=== PATIENT | female | born 1970 | race Two or more races ===

== ENCOUNTER 2017-12-28 13:57 | Emergency (ER) | payer OTHER ==
[~2017-12-28] VITALS: Ht 165.1 cm; Wt 4.5 kg
[2017-12-28 14:10] VITALS: BP 140/95
[2017-12-28] MEDS ORDERED: LIDOCAINE 1%-EPI 1:100,000 20 ML VIAL ONE (14:20)
[2017-12-28] MEDS ORDERED: LIDOCAINE 1%-EPI 1:100,000 20 ML VIAL TP ONE (15:30)
[2017-12-28] MEDS ORDERED: TDAP [DIPH/PERTUSSIS/TET] 0.5 ML VIAL IM ONE ×2 (15:30→15:34)
== END 2017-12-28 15:58 | disposition home or self-care (01) ==
LOC: ER 13:58
DX: S81.812A Laceration without foreign body, left lower leg, initial encounter (principal); S81.012A Laceration without foreign body, left knee, initial encounter; W26.8XXA Contact with other sharp object(s), not elsewhere classified, initial encounter; Y93.89 Activity, other specified; Y92.89 Other specified places as the place of occurrence of the external cause; Y99.8 Other external cause status
CPT/HCPCS: 12004; 90471; 90715; 99283; A4606; A6402 ×2; A6403; J3490; Z7610

== ENCOUNTER 2017-12-30 22:20 | Emergency (ER) | payer OTHER ==
[~2017-12-30] VITALS: Ht 160 cm; Wt 77.1 kg
[2017-12-30 23:03] VITALS: BP 155/76
[2017-12-30] MEDS ORDERED: CEFTRIAXONE 500 MG VIAL IM ONE (23:30)
[2017-12-30] MEDS ORDERED: CEFTRIAXONE 1 G VIAL ONE (23:37)
[2017-12-30] MEDS ORDERED: LIDOCAINE 0.5% HCL 50 ML VIAL ONE (23:37)
== END 2017-12-31 00:12 | disposition home or self-care (01) ==
LOC: ER 22:20
DX: S71.112D Laceration without foreign body, left thigh, subsequent encounter (principal); X58.XXXD Exposure to other specified factors, subsequent encounter
CPT/HCPCS: A4606; J0696; J3490; Z7610

== ENCOUNTER 2017-12-31 21:06 | Emergency (ER) | payer OTHER, MEDICAID ==
[~2017-12-31] VITALS: Ht 162.6 cm; Wt 77.1 kg
[2017-12-31 21:10] VITALS: BP 129/76
== END 2017-12-31 21:38 | disposition home or self-care (01) ==
LOC: ER 21:09
DX: S71.112D Laceration without foreign body, left thigh, subsequent encounter (principal); X58.XXXD Exposure to other specified factors, subsequent encounter
CPT/HCPCS: A4606; Z7502; Z7610

== ENCOUNTER 2018-01-10 22:50 | Emergency (ER) | payer OTHER, MEDICAID ==
[~2018-01-10] VITALS: Ht 172.7 cm; Wt 77.1 kg
[2018-01-10 22:55] VITALS: BP 138/90
[2018-01-10] MEDS ORDERED: HYDROCODONE/APAP 5/325MG 1 EACH TABLET ONE (23:27)
[2018-01-10] MEDS ORDERED: HYDROCODONE/APAP 5/325MG 1 EACH TABLET PO ONE (23:30)
== END 2018-01-10 23:43 | disposition home or self-care (01) ==
LOC: ER 22:51
DX: S81.812D Laceration without foreign body, left lower leg, subsequent encounter (principal); X58.XXXD Exposure to other specified factors, subsequent encounter
CPT/HCPCS: 99281; A4606; Z7610; Z7502

== ENCOUNTER 2021-06-24 13:19 | Emergency (ER) | payer OTHER ==
[~2021-06-24] VITALS: Ht 157.5 cm; Wt 79.4 kg
[2021-06-24 13:58] VITALS: BP 151/87
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
[2021-06-24] MEDS ORDERED: IBUPROFEN 600 MG TABLET PO ONE (15:00)
[2021-06-24] MEDS ORDERED: ACETAMINOPHEN ES 500 MG TABLET PO ONE (15:00)
[2021-06-24] MEDS ORDERED: ACETAMINOPHEN ES 500 MG TABLET ONE (15:43)
[2021-06-24] MEDS ORDERED: IBUPROFEN 600 MG TABLET ONE (15:44)
[2021-06-24] MEDS ORDERED: IBUP-1957 PO (16:14)
--- NOTE | 2021-06-24 16:29 | NUR ---
Patient discharged to home in stable condition. Written and verbal after care instructions given. Patient verbalizes understanding of instruction.
== END 2021-06-24 16:30 | disposition home or self-care (01) ==
LOC: ER 13:29
DX: S67.01XA Crushing injury of right thumb, initial encounter (principal); V91.19XA Crushed between unspecified watercraft and other watercraft or other object due to collision, initial encounter; Y93.89 Activity, other specified; Y92.89 Other specified places as the place of occurrence of the external cause; Y99.8 Other external cause status
CPT/HCPCS: 73140-TC